=== PATIENT | female | born 2000 | race Caucasian/White ===

== ENCOUNTER → 2021-04-13 13:17 | Outpatient (CLI) | payer OTHER, SELFPAY ==
--- NOTE | ~2021-04-13 | US_ITS ---
EXAMINATION: US transvaginal DATE: 04/13/2021 13:46 INDICATION: Abnormal bleeding with IUD Comparison:No prior studies for comparison. TECHNIQUE: Multiple endovaginal sonographic images of the pelvis performed. FINDINGS: The uterus measures 6.3 x 2.9 x 3.6 cm. IUD is located in the endometrium. The endometrial complex measures 5 mm. The right ovary measures 2.5 x 1 x 1.5 cm and the left ovary measures 1.8 x 1.8 x 1.6 cm. There are small follicles in each ovary. Normal doppler signal in both ovaries. There is no free fluid in the pelvis. There are no abnormal masses seen on either side. IMPRESSION: 1. Normal pelvic ultrasound. IUD in expected position. Reviewed, dictated and finalized at location A.
== END ==
PROVIDERS: Visit Provider Nurse Practitioner
DX: N93.9 Abnormal uterine and vaginal bleeding, unspecified (principal); Z97.5 Presence of (intrauterine) contraceptive device
CPT/HCPCS: 76830